=== PATIENT | female | born 1990 | race Caucasian/White ===

== ENCOUNTER 2020-11-12 11:54 | Emergency (ER) | payer MEDICAID, OTHER ==
[~2020-11-12] VITALS: Ht 154.9 cm; Wt 49.0 kg
[2020-11-12 12:58] LABS: BASOPHILS % (AUTO) 1 % (0-1); EOSINOPHILS % (AUTO) 0 % (1-7); LYMPHOCYTES % (AUTO) 15 % (22-44); MEAN CORPUSCULAR HEMOGLOBIN 31.9 pg (27.0-34.8); MEAN CORPUSCULAR HGB CONC 34.5 g/dL (32.4-35.8); MEAN PLATELET VOLUME 8.7 fL (7.4-10.4); MONOCYTES % (AUTO) 3 % (2-9); NEUTROPHILS % (AUTO) 82 % (42-75); PLATELET COUNT 288 x10^3/uL (130-400); RED BLOOD COUNT 4.53 x10^6/uL (3.82-5.3); RED CELL DISTRIBUTION WIDTH 12.4 % (9.6-15.2)
[2020-11-12] MEDS ORDERED: HYDROmorphone 1 MG/ML, 1ML INJ IV ONE (13:00)
[2020-11-12] MEDS ORDERED: ONDANSETRON 2MG/ML, 2ML IVPush ONE (13:00)
[2020-11-12] MEDS ORDERED: SODIUM CHLORIDE FLUSH 10ML SYR IVF ONE (13:00)
[2020-11-12 13:10] LABS: ALANINE AMINOTRANSFERASE 29 U/L (12-78); ALBUMIN 4.3 g/dL (3.4-5.0); ANION GAP 11 mmol/L (5-15); CALCIUM 8.8 mg/dL (8.5-10.1); CHLORIDE 106 mmol/L (98-107); CREATININE 0.75 mg/dL (0.55-1.02)
--- NOTE | 2020-11-12 13:10 | NUR ---
PT TO RADIOLOGY
[2020-11-12 13:15] LABS: ALKALINE PHOSPHATASE 77 U/L (45-117); BILIRUBIN,TOTAL 1.1 mg/dL (0.2-1.0); TOTAL PROTEIN 7.6 g/dL (6.4-8.2)
--- NOTE | 2020-11-12 13:33 | NUR ---
[place]ED FROM [facility] C/O LLQ PAIN, STARTED THIS MORNING. N/V X 2 DAYS. DENIES DIARRHEA, CONSTIPATION. LAST BM: YESTERDAY. LAST ORAL INTAKE: 2 DAYS AGO. LMP: 10/27/20. NO MED TAKEN FOR SX. REPORTS MIGRAINE; STARTED YESTERDAY; FREQUENT MIGRAINES; TOOK MIGRAINE MED YESTERDAY MORNING.
[2020-11-12] MEDS ORDERED: SUMATRIPTAN PO (13:38)
[2020-11-12] MEDS ORDERED: HYDROmorphone 2 MG/ML, 1ML ONE (13:44)
[2020-11-12] MEDS ORDERED: ONDANSETRON 2MG/ML, 2ML ONE (13:44)
[2020-11-12 13:51] LABS: MICROSCOPIC INDICATED
--- NOTE | 2020-11-12 14:06 | NUR ---
KATHRIN & SULTANAID GIVEN PER MAR
--- NOTE | 2020-11-12 14:50 | NUR ---
QUICK CATH URINE SPECIMEN OBTAINED AND WALKED TO LAB.
[2020-11-12 15:19] LABS: MICROSCOPIC NOT IND
--- NOTE | 2020-11-12 15:41 | NUR ---
PT ENDORSED TO BREAK RN.
[2020-11-12] MEDS ORDERED: SODIUM CHLORIDE 0.9% 1,000ML IVBOLUS ONE (16:00)
[2020-11-12 17:36] VITALS: BP 107/71
--- NOTE | 2020-11-12 17:41 | NUR ---
ASSIST RN: PT STATES SHE STILL FEELS A LITTLE NAUSEOUS BUT STATES SHE WOULD LIKE TO GO HOME. IV BOLUS COMPLETED. D/C INSTRUCTIONS, MEDS & F/U APPT RV'WD WITH PT. RX GIVEN X2. INSTRUCTED PT TO RETURN TO ED IF SYMPTOMS NOT IMPROVING. AMBULATED OUT OF ED WITHOUT DIFFICULTY, STATES A FRIEND IS PICKING HER UP.
== END 2020-11-12 17:42 | disposition home or self-care (01) ==
LOC: ED 12:24
DX: N83.202 Unspecified ovarian cyst, left side (principal); N83.201 Unspecified ovarian cyst, right side; R11.2 Nausea with vomiting, unspecified; E86.0 Dehydration; E86.9 Volume depletion, unspecified
CPT/HCPCS: 36415; 76830; 80053; 81001; 81003; 83690; 84703; 85025; 87086; 96374; 96375; 99284; J1170; J2405; J7030